=== PATIENT | female | born 2000 | race African-American/Black ===

== ENCOUNTER 2022-02-02 11:04 | Emergency (ER) | payer MEDICAID ==
[~2022-02-02] VITALS: Ht 180.3 cm; Wt 79.0 kg
[2022-02-02 11:08] VITALS: BP 138/82
[2022-02-02 14:40] LABS: BASOPHILS % 0.6 % (0.0-2.0); EOSINOPHILS % 2.3 % (0.0-5.0); HEMATOCRIT. 37.7 % (36.0-48.0); HEMOGLOBIN. 11.8 g/dL (12.0-16.0); LYMPHOCYTES % 18.9 % (20.0-50.0); MEAN CORPUSCULAR VOLUME 73.6 fL (81.0-99.0); MEAN PLATELET VOLUME 9.8 fl (7.4-10.4); MONOCYTES % 12.8 % (2.0-8.0); NEUTROPHILS % 65.4 % (40.0-76.0); PLATELET 218 x1000/uL (130-400); RED BLOOD CELL COUNT 5.12 mill/uL (4.2-5.4); RED CELL DISTRIBUTION WIDTH 14.7 % (11.6-14.6)
[2022-02-02 14:42] LABS: CHLORIDE 105 mEq/L (98-107)
[2022-02-02 15:01] LABS: CLARITY URINE CLEAR (CLEAR); COLOR URINE YELLOW (YELLOW); KETONES URINE 2+ (NEGATIVE); PROTEIN URINE TRACE (NEGATIVE)
[2022-02-02 15:02] LABS: LEUKOCYTE ESTERASE URINE NEGATIVE (NEGATIVE); NITRITE URINE NEGATIVE (NEGATIVE); OCCULT BLOOD URINE NEGATIVE (NEGATIVE); UROBILINOGEN URINE 0.2 E.U./dL (0.2-1.0)
== END 2022-02-02 16:03 | disposition home or self-care (01) ==
LOC: ER 11:04
DX: B34.9 Viral infection, unspecified (principal); Z20.822 Contact with and (suspected) exposure to COVID-19; Z86.59 Personal history of other mental and behavioral disorders
CPT/HCPCS: 36415; 71045; 80053; 81003; 81025; 84484; 85025; 87426; 93005; 99285; C9803

== ENCOUNTER 2023-10-17 10:48 | Emergency (ER) | payer MEDICAID, OTHER ==
[~2023-10-17] VITALS: Ht 175.3 cm; Wt 95.0 kg
[2023-10-17 10:49] VITALS: O2SAT 99
[2023-10-17 11:29] LABS: DIFFERENTIAL COMMENT 0; HEMATOCRIT. 34.2 % (36.0-48.0); HEMOGLOBIN. 10.6 g/dL (12.0-16.0); LYMPHOCYTES % 19.1 % (20.0-50.0); MEAN CORPUSCULAR HEMOGLOBIN 22.2 pg (28.0-32.0); MEAN CORPUSCULAR VOLUME 71.6 fL (81.0-99.0); MEAN PLATELET VOLUME 8.7 fl (7.4-10.4); MONOCYTES % 10.7 % (2.0-8.0); NEUTROPHILS % 61.2 % (40.0-76.0); PLATELET 265 x1000/uL (130-400); RED BLOOD CELL COUNT 4.78 mill/uL (4.2-5.4); WHITE BLOOD COUNT 5.6 x1000/uL (4.5-11.0)
[2023-10-17] MEDS: LACTATED RINGERS 1,000 ML IV SCH (11:31)
[2023-10-17] MEDS: LEVETIRACETAM 500MG PREMIX 100 ML IV ONE ×2 (11:31→11:36)
[2023-10-17 11:40] LABS: CHLORIDE 106 mEq/L (98-107); POTASSIUM 3.7 mEq/L (3.5-5.1); SODIUM 139 mEq/L (136-145)
[2023-10-17 11:41] LABS: CALCIUM 9.2 mg/dL (8.7-10.4); CARBON DIOXIDE 25 mEq/L (21-32)
[2023-10-17 11:46] LABS: CREATININE 0.7 mg/dL (0.6-1.0); GLUCOSE 93 mg/dL (70-105); UREA NITROGEN BLOOD 6 mg/dL (9-23)
[2023-10-17 11:48] LABS: ALANINE AMINOTRANSFERASE 16 IU/L (10-49); ALBUMIN 4.3 g/dL (3.2-4.8); ASPARTATE AMINOTRANSFERASE 18 IU/L (<34)
[2023-10-17 11:49] LABS: BILIRUBIN TOTAL 0.3 mg/dL (0.1-1.0); PROTEIN TOTAL 7.5 g/dL (6.0-8.3)
[2023-10-17 11:50] LABS: HCG SCREEN NEGATIVE
[2023-10-17 12:36] VITALS: BP 118/56; PULSE 91; RESP 15; TEMP 97.8
== END 2023-10-17 12:36 | disposition home or self-care (01) ==
LOC: ER 10:57
DX: R56.9 Unspecified convulsions (principal); R05.9 Cough, unspecified
CPT/HCPCS: 80053; 84703; 85025; 36415; 71045; 93005; 96365; 99285; J1953; Z7610 ×2

== ENCOUNTER 2023-10-17 16:40 | Emergency (ER) | payer MEDICAID, OTHER ==
[~2023-10-17] VITALS: Ht 172.7 cm; Wt 84.0 kg
[2023-10-17 16:42] VITALS: O2SAT 99
[2023-10-17] MEDS: ACETAMINOPHEN 325MG TABLET PO ONE (17:44)
[2023-10-17 18:27] LABS: CLARITY URINE CLOUDY (CLEAR); COLOR URINE ORANGE (YELLOW); GLUCOSE URINE NEGATIVE (NEGATIVE); KETONES URINE NEGATIVE (NEGATIVE); LEUKOCYTE ESTERASE URINE TRACE (NEGATIVE); NITRITE URINE NEGATIVE (NEGATIVE); OCCULT BLOOD URINE 3+ (NEGATIVE); PH URINE >=9.0 (4.5-8.0); PROTEIN URINE 1+ (NEGATIVE); SPECIFIC GRAVITY URINE 1.019 (1.005-1.030)
[2023-10-17 18:40] LABS: *AMPHETAMINES SCREEN URINE NEGATIVE (NEGATIVE); *BARBITURATES SCREEN URINE NEGATIVE (NEGATIVE); *BENZODIAZEPINES SCREEN URINE NEGATIVE (NEGATIVE); *COCAINE SCREEN URINE NEGATIVE (NEGATIVE)
[2023-10-17 18:41] LABS: CANNABINOID URINE SCREEN NEGATIVE (NEGATIVE); ECSTASY MDMA SCREEN URINE NEGATIVE (NEGATIVE); METHADONE URINE SCREEN NEGATIVE (NEGATIVE); OPIATES URINE SCREEN NEGATIVE (NEGATIVE); PHENCYCLIDINE URINE SCREEN NEGATIVE (NEGATIVE)
[2023-10-17 18:48] LABS: BACTERIA URINE TRACE; RBC URINE TNTC /hpf (0-2); SQUAMOUS EPITHELIAL CELL URINE 2+ /lpf (RARE/1+)
[2023-10-17] MEDS: CEFTRIAXONE 1GM/50ML 50 ML IV NR (19:54)
[2023-10-17 22:41] VITALS: BP 119/72; PULSE 86; RESP 18; TEMP 98.6
== END 2023-10-17 22:45 | disposition short-term general hospital (02) ==
LOC: ER 17:01 → EDBEDREQ 22:17 → EDBEDREQTM 22:17 → ER 22:45
DX: R56.9 Unspecified convulsions (principal); R05.9 Cough, unspecified
CPT/HCPCS: 99291; 70450; 96365; 80305; 74176; 81003; J0696